=== PATIENT | female | born 2000 | race Two or more races ===

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

== ENCOUNTER 2021-12-17 01:06 | Emergency (ER) | payer MEDICAID | END 2021-12-17 02:00 | disposition left against medical advice (07) | LOC: ER 01:07 | DX: R51.9 Headache, unspecified (principal); Z53.21 Procedure and treatment not carried out due to patient leaving prior to being seen by health care provider ==